=== PATIENT | male | born 1950 | race Caucasian/White ===

== ENCOUNTER 2023-05-23 11:00 | Outpatient (CLI) | payer MEDICARE | END 2023-05-23 11:01 | disposition home or self-care (01) | LOC: CSHRAD 11:00 | PROVIDERS: ATTEND Neurological Surgery | DX: M54.50 Low back pain, unspecified (principal); M47.816 Spondylosis without myelopathy or radiculopathy, lumbar region; Z96.89 Presence of other specified functional implants | CPT/HCPCS: 72100 ==

== ENCOUNTER 2023-07-19 14:53 | Outpatient (CLI) | payer MEDICARE | END 2023-07-19 14:54 | disposition home or self-care (01) | LOC: CSHRAD 14:53 | PROVIDERS: ATTEND Orthopaedic Surgery | DX: M54.50 Low back pain, unspecified (principal) | CPT/HCPCS: 72100 ==

== ENCOUNTER 2024-04-28 12:19 | Outpatient (CLI) | payer MEDICARE | END 2024-04-28 12:20 | disposition home or self-care (01) | LOC: CSHMRI 12:19 | PROVIDERS: ATTEND Family Medicine | DX: M47.816 Spondylosis without myelopathy or radiculopathy, lumbar region (principal); M48.061 Spinal stenosis, lumbar region without neurogenic claudication; M48.07 Spinal stenosis, lumbosacral region | CPT/HCPCS: 36415; 72158; 82565 ==